=== PATIENT | female | born 1935 | race Hispanic/Latino ===

== ENCOUNTER 2018-01-04 08:37 | Inpatient (IN) | payer MEDICARE ==
[2018-01-02 11:26] LABS: HEMATOCRIT 39.7 % (36-48); MEAN CORPUSCULAR HEMOGLOBIN 29.8 pg (27.0-33.0); MEAN CORPUSCULAR VOLUME 90.4 fL (79-99); NUCLEATED RED BLOOD CELLS 0.1 % (0.0-0.19); PLATELET COUNT (AUTO) 225 K/uL (130-400); RED CELL DISTRIBUTION WIDTH 13.8 % (11.0-15.5)
[2018-01-02 11:32] LABS: CREATININE 1.3 mg/dL (0.5-1.5); POTASSIUM 4.3 mmol/L (3.5-5.1)
[2018-01-02 11:52] VITALS: BP 172/57
[2018-01-02 12:05] LABS: APPEARANCE,URINE Clear (CLEAR); BILIRUBIN,URINE Negative (NEGATIVE); COLOR,URINE Yellow (YELLOW); GLUCOSE, URINE (UA) Negative (NEGATIVE); KETONES,URINE Negative (NEGATIVE); LEUKOCYTE ESTERASE ,URINE Small (NEGATIVE); NITRATE,URINE Negative (NEGATIVE); OCCULT BLOOD,URINE Negative (NEGATIVE); PROTEIN,URINE Negative (NEGATIVE)
[2018-01-02 12:10] LABS: INR 0.97 (0.85-1.15); PARTIAL THROMBOPLASTIN TIME 24.3 SEC (26.3-35.5); PROTHROMBIN TIME 10.2 SEC (9.6-11.6)
[2018-01-02 12:21] LABS: BASOPHILS % (MANUAL) 1 % (0-2); EOSINOPHILS % (MANUAL) 1 % (1-6); LYMPHOCYTES % (MANUAL) 20 % (22-44); MAN.DIFF COMMENT-IMPRESSION MANUAL DIFFERENTIAL; MONOCYTES % (MANUAL) 12 % (2-9); PLATELET MORPHOLOGY COMMENT ADEQUATE; REACTIVE LYMPHOCYTES 3 % (0-0); SEGMENTED NEUTROPHILS % 63 % (40-70)
[2018-01-02 12:24] LABS: BACTERIA,URINE Rare /HPF (None Seen); SQUAMOUS EPITHELIAL CELL,UR Rare /HPF (0-2); WBC,URINE 0-1 /HPF (0-1)
[2018-01-04] VITALS (16 sets, daily range): BP systolic 64–134; BP diastolic 31–103
[~2018-01-04] VITALS: Ht 149.9 cm; Wt 71.6 kg
[~2018-01-04 08:37] MED LIST: ALEN70TA47 PO; ASPI-555 PO; CHOL200013 PO; CLOP75TA32 PO; DICL1ADH12 TD; HYDR200T4 PO; MONT10TA24 PO; RANI150T7 PO; SIMV80TA7 PO
[2018-01-04] MEDS ORDERED: SODIUM CHLORIDE 0.9% 1000ML 1,000 ML IV ONE (09:58)
[2018-01-04] MEDS ORDERED: HEPARIN SODIUM 1000UNIT/ML 10ML VIAL ONE ×2 (10:34→12:08)
[2018-01-04] MEDS ORDERED: SODIUM BICARB 50MEQ 50ML VIAL ONE ×2 (10:34→12:08)
[2018-01-04] MEDS ORDERED: NITROGLYCERIN 5 MG/ML 10 ML VIAL IV ONE ×2 (10:34→12:08)
[2018-01-04] MEDS ORDERED: ISOVUE-300 100 ML VIAL IV ONE ×2 (10:35→13:17)
[2018-01-04] MEDS ORDERED: LIDOCAINE HCL 2% 20ML ONE ×2 (10:35→12:08)
[2018-01-04] MEDS ORDERED: ATROPINE SULFATE 0.1 MG/ML 10 ML SYG IVP ONE (12:08)
[2018-01-04] MEDS ORDERED: DOPAMINE HCL 400 MG/D5%-WATER 0 ML IV ONE (12:09)
[2018-01-04] MEDS ORDERED: ISOVUE-370 50ML VIAL IV ONE (12:36)
[2018-01-04] MEDS: SODIUM CHLORIDE 0.9% 1000ML 1,000 ML IV SCH ×2 (13:36→23:36)
[2018-01-04] MEDS ORDERED: ACETAMINOPHEN 325 MG TAB PO PRN (13:45)
[2018-01-04] MEDS ORDERED: DICLOFENAC EPOLAMINE TD SCH (13:45)
[2018-01-04] MEDS ORDERED: ONDANSETRON HCL MDV 20ML 2 MG/ML VIAL IVP PRN (13:45)
[2018-01-04 19:34] LABS: HEMATOCRIT 28.7 % (36-48)
[2018-01-04] MEDS: MONTELUKAST SODIUM 10 MG TAB PO SCH (20:41)
[2018-01-04] MEDS: ATORVASTATIN CALCIUM 40 MG TABLET PO SCH (20:41)
[2018-01-04] MEDS: HYDROXYCHLOROQUINE SULFATE 200 MG TAB PO SCH (20:41)
[2018-01-04] MEDS: RANITIDINE HCL 15 MG/1 ML PO SCH (20:45)
[2018-01-05] VITALS (14 sets, daily range): BP systolic 93–124; BP diastolic 31–72
[2018-01-05 00:40] LABS: HEMATOCRIT 27.3 % (36-48)
[2018-01-05] MEDS ORDERED: POTASSIUM CHLORIDE 10% ELIXIR 20 MEQ/15 ML UDCUP PO PRN (01:00)
[2018-01-05] MEDS ORDERED: POTASSIUM CHLORIDE 20 MEQ ERTAB PO PRN (01:00)
[2018-01-05] MEDS ORDERED: POTASSIUM CHLORIDE 20MEQ/100ML 100 ML IV PRN (01:00)
[2018-01-05] MEDS ORDERED: IPRATROPIUM 0.5 MG/2.5 ML INH IH PRN (01:00)
[2018-01-05] MEDS ORDERED: LEVOFLOXACIN 500 MG/D5W 100 ML 100 ML IV SCH (01:00)
[2018-01-05 04:16] LABS: HEMATOCRIT 25.3 % (36-48); MEAN CORPUSCULAR HEMOGLOBIN 30.1 pg (27.0-33.0); MEAN CORPUSCULAR HGB CONC 33.3 g/dL (32.0-36.0); MEAN CORPUSCULAR VOLUME 90.4 fL (79-99); PLATELET COUNT (AUTO) 180 K/uL (130-400); RED CELL DISTRIBUTION WIDTH 13.9 % (11.0-15.5); WHITE BLOOD COUNT (AUTO) 11.5 K/uL (4.8-10.8)
[2018-01-05 04:27] LABS: CREATININE 1.2 mg/dL (0.5-1.5); POTASSIUM 4.7 mmol/L (3.5-5.1)
[2018-01-05] MEDS: ALENDRONATE SODIUM 35 MG TAB PO SCH ×2 (06:28→06:29)
[2018-01-05] MEDS ORDERED: MORPHINE SULFATE 4 MG/1ML SYG IVP PRN (07:45)
[2018-01-05] MEDS ORDERED: ACETAMINOPHEN-CODEINE 300/30MG TAB PO PRN (07:45)
[2018-01-05] MEDS: CLOPIDOGREL BISULFATE 75 MG TAB PO SCH (08:20)
[2018-01-05] MEDS: ASPIRIN 81 MG EC TAB PO SCH (08:20)
[2018-01-05] MEDS: RANITIDINE HCL 15 MG/1 ML PO SCH ×2 (08:20→20:43)
[2018-01-05] MEDS: HYDROXYCHLOROQUINE SULFATE 200 MG TAB PO SCH ×2 (08:20→20:44)
[2018-01-05] MEDS ORDERED: CHOLECALCIFEROL 2000 UNIT PO SCH (09:00)
[2018-01-05] MEDS: CEPHALEXIN 250 MG CAPSULE PO SCH ×3 (09:17→20:43)
[2018-01-05] MEDS: ATORVASTATIN CALCIUM 40 MG TABLET PO SCH (20:43)
[2018-01-05] MEDS: MONTELUKAST SODIUM 10 MG TAB PO SCH (20:43)
[2018-01-06 03:37] VITALS: BP 134/48
[2018-01-06 04:30] LABS: HEMATOCRIT 24.5 % (36-48); MEAN CORPUSCULAR HEMOGLOBIN 29.7 pg (27.0-33.0); PLATELET COUNT (AUTO) 200 K/uL (130-400); RED BLOOD CELL COUNT(AUTO) 2.73 MIL/uL (4.00-5.50); RED CELL DISTRIBUTION WIDTH 13.7 % (11.0-15.5); WHITE BLOOD COUNT (AUTO) 14.2 K/uL (4.8-10.8)
[2018-01-06 04:43] LABS: CREATININE 1.2 mg/dL (0.5-1.5); POTASSIUM 4.5 mmol/L (3.5-5.1)
[2018-01-06 07:15] VITALS: BP 116/43
[2018-01-06] MEDS: CLOPIDOGREL BISULFATE 75 MG TAB PO SCH (08:59)
[2018-01-06] MEDS: RANITIDINE HCL 15 MG/1 ML PO SCH (08:59)
[2018-01-06] MEDS: HYDROXYCHLOROQUINE SULFATE 200 MG TAB PO SCH (08:59)
[2018-01-06] MEDS: ASPIRIN 81 MG EC TAB PO SCH (09:00)
[2018-01-06] MEDS: CEPHALEXIN 250 MG CAPSULE PO SCH (09:00)
[2018-01-06] MEDS ORDERED: CEPH250C2 PO (09:50)
== END 2018-01-06 11:25 | disposition home or self-care (01) | DRG 39 ==
LOC: DAH 08:37 → DAHIP 08:38 → DAH 08:38 → 2BH 15:13 → 2CH 16:38 → 2AH 01-05 14:22
PROVIDERS: ADMIT Internal Medicine; ATTEND Internal Medicine
PROC: 037K34Z Dilation of Right Internal Carotid Artery with Drug-eluting Intraluminal Device, Percutaneous Approach (ICD-10-PCS; principal; 2018-01-04)
PROC: B4101ZZ Fluoroscopy of Abdominal Aorta using Low Osmolar Contrast (ICD-10-PCS; 2018-01-04)
PROC: B3151ZZ Fluoroscopy of Bilateral Common Carotid Arteries using Low Osmolar Contrast (ICD-10-PCS; 2018-01-04)
PROC: B3121ZZ Fluoroscopy of Left Subclavian Artery using Low Osmolar Contrast (ICD-10-PCS; 2018-01-04)
DX: I65.21 Occlusion and stenosis of right carotid artery (principal); J44.9 Chronic obstructive pulmonary disease, unspecified; R47.01 Aphasia; E78.5 Hyperlipidemia, unspecified; I25.10 Atherosclerotic heart disease of native coronary artery without angina pectoris; K29.70 Gastritis, unspecified, without bleeding; Y83.8 Other surgical procedures as the cause of abnormal reaction of the patient, or of later complication, without mention of misadventure at the time of the procedure; Y82.8 Other medical devices associated with adverse incidents; M19.90 Unspecified osteoarthritis, unspecified site; Z79.82 Long term (current) use of aspirin; Z79.899 Other long term (current) drug therapy; Z87.891 Personal history of nicotine dependence; Z95.5 Presence of coronary angioplasty implant and graft; T14.8XXA Other injury of unspecified body region, initial encounter
CPT/HCPCS: 36223; 36415; 37215; 71045; 76882; 80048; 81001; 85014; 85018; 85025; 85027; 85347; 85610; 85730; 86850; 86900; 86901; 93005; 94640; 94664; A4344; A4606; C1725; C1769; C1884; C1894; J0461; J1265; J1644; J1956; J3490; J7030; Q9967

== ENCOUNTER → 2018-01-10 | Outpatient (CLI) | payer MEDICARE ==
[~2018-01-10] MED LIST changes: +CEPH250C2 PO
== END | disposition home or self-care (01) ==
LOC: RAH 12:45
PROVIDERS: ATTEND Internal Medicine Cardiovascular Disease
DX: I72.9 Aneurysm of unspecified site (principal); M79.81 Nontraumatic hematoma of soft tissue; I25.10 Atherosclerotic heart disease of native coronary artery without angina pectoris; J44.9 Chronic obstructive pulmonary disease, unspecified; Z79.899 Other long term (current) drug therapy
CPT/HCPCS: 76882